=== PATIENT | male | born 1990 | race American Indian/Alaskan Native ===

== ENCOUNTER 2021-06-15 19:07 | Emergency (ER) | payer SELFPAY ==
[2021-06-15 21:12] VITALS: BP 141/101
[2021-06-15] MEDS ORDERED: diazePAM 5 MG TAB PO ONE (21:16)
[2021-06-15] MEDS ORDERED: ASPIRIN 325 MG TAB PO ONE (21:16)
[2021-06-15 21:37] LABS: Basophils % (Auto) 0.2 % (0.0-1.8); Eosinophils # (Auto) 0.1 K/mm3 (0.0-0.4); Eosinophils % (Auto) 1.3 % (0.0-4.3); Lymphocytes # (Auto) 1.5 K/mm3 (1.2-5.4); Lymphocytes % (Auto) 16.2 % (13.4-35.0); Mean Corpuscular HGB Conc 33 % (32-34); Mean Corpuscular Volume 90 fl (84-94); Monocytes # (Auto) 1.2 K/mm3 (0.0-0.8); Monocytes % (Auto) 12.8 % (0.0-7.3); Platelet Count 254 K/mm3 (140-440); Red Blood Count 5.12 M/mm3 (3.65-5.03); Red Cell Distribution Width 14.6 % (13.2-15.2)
[2021-06-15 21:59] LABS: Alanine Aminotransferase 12 units/L (7-56); Blood Urea Nitrogen 6 mg/dL (9-20); Calcium 9.8 mg/dL (8.4-10.2); Hemolysis Index 18
[2021-06-15 22:00] LABS: BUN/Creatinine Ratio 9
--- NOTE | 2021-06-15 22:07 | XRay Report ---
CHEST 2 VIEWS INDICATION / CLINICAL INFORMATION: chest pain. COMPARISON: None available. FINDINGS: SUPPORT DEVICES: None. HEART / MEDIASTINUM: No significant abnormality. LUNGS / PLEURA: There is a tiny left pleural effusion. ADDITIONAL FINDINGS: No significant additional findings. IMPRESSION: 1. Tiny left pleural effusion without additional significant abnormality. Signer Name: Mayank Guido MD Signed: 06/15/2021 10:03 PM Workstation Name: [id number]
[2021-06-15] MEDS ORDERED: CYCLOBENZAPRINE 10 MG TAB PO ONE (22:39)
[2021-06-15] MEDS ORDERED: IBUPROFEN 600 MG TAB PO ONE (22:39)
--- NOTE | 2021-06-15 22:44 | Emergency Department Report ---
ED Back Pain/Injury HPI - General Chief Complaint: Back Pain/Injury Stated Complaint: PAIN/VOMITING Source: patient Limitations: No Limitations - History of Present Illness Initial Comments: Patient is a 30-year-old -[place] male with no past medical history presented to the ED with complaint of acute onset persistent nontraumatic posterior left mid thoracic pain that radiates to the left shoulder, left arm and anterior left chest wall for the last 1 week, worse in the last 24 hours. Patient states that the pain got so severe 8 hours ago and he developed nausea and vomiting and near syncopal episode due to persistent lightheadedness with the pain. Patient denies headache, traumatic injury, neck pain, low back pain, fall, cough, shortness of breath, nausea and vomiting or diarrhea, abdominal pain, fever, chills, change in vision, dizziness, seizures, numbness and tingling or weakness of upper and lower extremities bilaterally. MD Complaint: back pain (left posterior mid thoracic pain radiating to left chest, arm and shoulder) -: Sudden, days(s) (2) Similar Symptoms Previously: No Place: work Radiation: none, left leg, flank (left) Quality: sharp, aching Consistency: constant Improves With: none Worsens With: movement, supine, walking, deep breaths/cough Context: unknown Associated Symptoms: denies other symptoms, chest pain (left-sided chest pain). denies: confusion, weakness, numbness, difficulty walking, cough, difficulty urinating, diaphoresis, incontinence, fever/chills, headaches, abdominal pain, loss of appetite, nausea/vomiting, rash, seizure, shortness of breath, syncope - Related Data Previous Rx's Medication Instructions Recorded Last Taken Type Cyclobenzaprine [Flexeril] 10 mg PO TID PRN #21 tablet 06/15/21 Unknown Rx Ibuprofen [Motrin] 800 mg PO Q8HR PRN #30 tablet 06/15/21 Unknown Rx Allergies Allergy/AdvReac Type Severity Reaction Status Date / Time No Known Allergies Allergy Unverified 06/15/21 21:00 ED Review of Systems ROS: Stated complaint: PAIN/VOMITING Other details as noted in HPI Constitutional: denies: chills, fever Eyes: denies: eye pain, eye discharge, vision change ENT: denies: ear pain, throat pain Respiratory: denies: cough, shortness of breath, wheezing Cardiovascular: denies: chest pain, palpitations Endocrine: no symptoms reported Gastrointestinal: denies: abdominal pain, nausea, diarrhea Genitourinary: denies: urgency, dysuria Musculoskeletal: back pain (mid-posterior thoracic), arthralgia (left shoulder and arm), myalgia. denies: joint swelling Skin: denies: rash, lesions Neurological: denies: headache, weakness, paresthesias Psychiatric: denies: anxiety, depression Hematological/Lymphatic: denies: easy bleeding, easy bruising ED Past Medical Hx - Past Medical History Previous Medical History?: No - Surgical History Past Surgical History?: No - Medications Home Medications: Home Medications Medication Instructions Recorded Confirmed Last Taken Type Cyclobenzaprine [Flexeril] 10 mg PO TID PRN #21 tablet 06/15/21 Unknown Rx Ibuprofen [Motrin] 800 mg PO Q8HR PRN #30 tablet 06/15/21 Unknown Rx ED Physical Exam - General Limitations: No Limitations General appearance: alert, in no apparent distress - Head Head exam: Present: atraumatic, normocephalic, normal inspection - Eye Eye exam: Present: normal appearance, PERRL, EOMI Pupils: Present: normal accommodation - ENT ENT exam: Present: normal exam, normal orophraynx, mucous membranes moist, TM's normal bilaterally, normal external ear exam - Neck Neck exam: Present: normal inspection, full ROM. Absent: tenderness - Respiratory Respiratory exam: Present: normal lung sounds bilaterally, chest wall tenderness (Palpable reproducible anterior left-sided chest wall tenderness). Absent: respiratory distress, wheezes, rales, decreased breath sounds, prolonged expiratory - Cardiovascular Cardiovascular Exam: Present: normal rhythm, tachycardia, normal heart sounds. Absent: systolic murmur, diastolic murmur, rubs, gallop - GI/Abdominal GI/Abdominal exam: Present: soft, normal bowel sounds. Absent: tenderness, guarding, hyperactive bowel sounds, hypoactive bowel sounds, organomegaly - Extremities Exam Extremities exam: Present: normal inspection, full ROM, tenderness (Palpable left shoulder and arm tenderness), normal capillary refill. Absent: pedal edema, joint swelling, calf tenderness - Back Exam Back exam: Present: normal inspection, full ROM, tenderness (Palpable posterior mid thoracic paraspinal musculoskeletal tenderness), muscle spasm, paraspinal tenderness. Absent: CVA tenderness (R), CVA tenderness (L), vertebral tenderness - Neurological Exam Neurological exam: Present: alert, oriented X3, CN II-XII intact, normal gait, reflexes normal - Psychiatric Psychiatric exam: Present: normal affect, normal mood - Skin Skin exam: Present: warm, dry, intact, normal color. Absent: rash ED Course Vital Signs 06/15/21 06/15/21 21:11 22:54 Pulse Rate 102 H 78 Respiratory 18 Rate Blood Pressure 141/101 [Right] O2 Sat by Pulse 99 100 Oximetry ED Medical Decision Making - Lab Data Result diagrams: 06/15/21 21:15 06/15/21 21:15 - Radiology Data Radiology results: report reviewed, image reviewed [facility] [address] [place] [address] XRay Report Signed Patient: APOLLO LIZARRAGA MR#: [id number] : 1990 Acct:[id number] Age/Sex: 30 / M ADM Date: 06/15/21 Loc: ED Attending Dr: Ordering Physician: GREG BURKS Date of Service: 06/15/21 Procedure(s): XR chest routine 2V Accession Number(s): [id number] cc: GREG BURKS Fluoro Time In Minutes: CHEST 2 VIEWS INDICATION / CLINICAL INFORMATION: chest pain. COMPARISON: None available. FINDINGS: SUPPORT DEVICES: None. HEART / MEDIASTINUM: No significant abnormality. LUNGS / PLEURA: There is a tiny left pleural effusion. ADDITIONAL FINDINGS: No significant additional findings. IMPRESSION: 1. Tiny left pleural effusion without additional significant abnormality. Signer Name: Mayank Guido MD Signed: 06/15/2021 10:03 PM Workstation Name: [id number] Transcribed By: MARIA R Dictated By: Mayank Guido MD Electronically Authenticated By: Mayank Guido MD Signed Date/Time: 06/15/212202 DD/ 02 TD/TT: Print - Medical Decision Making This is a 30-year-old -[place] male with no past medical history presented to the ED with complaint of acute onset persistent nontraumatic posterior left mid thoracic pain that radiates to the left shoulder, left arm and anterior left chest wall for the last 1 week, worse in the last 24 hours. Patient states that the pain got so severe 8 hours ago and he developed nausea and vomiting and near syncopal episode due to persistent lightheadedness with the pain. - Differential Diagnosis muscle strain; muscle spasm; pneumonia; ACS Critical care attestation.: If time is entered above; I have spent that time in minutes in the direct care of this critically ill patient, excluding procedure time. ED Disposition Clinical Impression: Spasm of thoracic back muscle, Muscle strain of anterior chest wall, Acute nonspecific chest pain with low risk of coronary artery disease Muscle strain of shoulder region Qualifiers: Encounter type: initial encounter Laterality: left Qualified Code(s): S46.912A - Strain of unspecified muscle, fascia and tendon at shoulder and upper arm level, left arm, initial encounter Disposition: HOME / SELF CARE / HOMELESS Is pt being admited?: No Does the pt Need Aspirin: No Condition: Stable Instructions: Muscle Cramps and Spasms, [id number], Chest Wall Pain, [id number], Muscle Strain, [id number], Nonspecific Chest Pain, Adult, [id number], Chest Pain (ED) Additional Instructions: All lab test results were reviewed and are all nonactionable. Chest x-ray showed no acute cardiopulmonary abnormalities or pneumonitis except for mild small tiny pleural effusion on the left which is nonspecific. Your symptoms are likely due to muscle strain or muscle spasm. Therefore take medication with food, drink plenty of fluids and follow-up with your primary care physician in 5 to 7 days for reevaluation. Return to the ED immediately if symptoms get worse. Prescriptions: Cyclobenzaprine [Flexeril] 10 mg PO TID PRN #21 tablet PRN Reason: Muscle Spasm Ibuprofen [Motrin] 800 mg PO Q8HR PRN #30 tablet PRN Reason: Pain , Severe (7-10) Referrals: PRIMARY CARE, [Primary Care Provider] - 3-5 Days Forms: Work/School Release Form(ED) Time of Disposition: 22:50 Print Language: ESTONIAN
--- NOTE | 2021-06-16 18:16 | Electrocardiograph Report ---
[facility] Test Date: 2021-06-15 Test Time: 20:59:52 Pat Name: APOLLO LIZARRAGA Department: Room: Gender: M [employer]ud Grader: JASON : 1990 Requested By: RICHARD MEMBRENO Order Number: [id number] Reading MD: Roland Fam Measurements Intervals [place] Rate: 95 P: 35 [place]: 129 QRS: 39 QRSD: 73 T: 36 QT: 339 QTc: 425 Interpretive Statements Sinus rhythm No previous ECG available for comparison Electronically Signed On 06-16-2021 18:16:23 EST by Roland Fam
== END 2021-06-15 22:45 | disposition home or self-care (01) ==
LOC: ED 19:07
DX: S46.912A Strain of unspecified muscle, fascia and tendon at shoulder and upper arm level, left arm, initial encounter (principal); M62.830 Muscle spasm of back; S29.011A Strain of muscle and tendon of front wall of thorax, initial encounter; X58.XXXA Exposure to other specified factors, initial encounter; Y93.89 Activity, other specified; Y92.89 Other specified places as the place of occurrence of the external cause; Y99.8 Other external cause status
CPT/HCPCS: 36415; 71046; 80053; 84484; 85025; 93005; 99284